=== PATIENT | male | born 1985 | race Two or more races ===

== ENCOUNTER 2024-06-08 11:11 | Emergency (ER) | payer OTHER ==
[~2024-06-08] VITALS: Ht 162.6 cm; Wt 61.2 kg
[2024-06-08 12:00] LABS: APPEARANCE,URINE Clear (CLEAR); BILIRUBIN,URINE Negative (NEGATIVE); BLOOD, URINE Negative Ery/uL (NEGATIVE); COLOR,URINE YELLOW (YELLOW); KETONES,URINE Negative (NEGATIVE); LEUKOCYTE ESTERASE ,URINE Negative (NEGATIVE); NITRITE, URINE Negative (NEGATIVE); PROTEIN,URINE Negative (NEGATIVE); UGLUCOSE Negative (NEGATIVE); UROBILINOGEN,URINE 0.2 EU/dL (0.2)
[2024-06-08] MEDS ORDERED: PHEN-704 PO (12:39)
[2024-06-08 12:46] VITALS: BP 125/80; TEMP 97.7; O2SAT 98
== END 2024-06-08 12:47 | disposition home or self-care (01) ==
LOC: ER 11:19
DX: R30.0 Dysuria (principal); R39.15 Urgency of urination; M35.3 Polymyalgia rheumatica; M45.9 Ankylosing spondylitis of unspecified sites in spine; Z88.6 Allergy status to analgesic agent
CPT/HCPCS: 87086-TC

== ENCOUNTER 2024-10-22 18:10 | Emergency (ER) | payer OTHER ==
[~2024-10-22] VITALS: Ht 167.6 cm; Wt 59.0 kg
[~2024-10-22 18:10] MED LIST: PHEN-704 PO
[2024-10-22 20:04] LABS: APPEARANCE,URINE CLEAR (CLEAR); BILIRUBIN,URINE NEGATIVE (NEGATIVE); BLOOD, URINE NEGATIVE Ery/uL (NEGATIVE); COLOR,URINE YELLOW (YELLOW); KETONES,URINE NEGATIVE (NEGATIVE); LEUKOCYTE ESTERASE ,URINE NEGATIVE (NEGATIVE); NITRITE, URINE NEGATIVE (NEGATIVE); PROTEIN,URINE NEGATIVE (NEGATIVE); UGLUCOSE NEGATIVE (NEGATIVE); UROBILINOGEN,URINE 0.2 EU/dL (0.2)
[2024-10-22] MEDS ORDERED: NITR100C6 PO (20:35)
[2024-10-22] MEDS ORDERED: PHEN-895 PO (20:35)
[2024-10-22 20:44] VITALS: BP 95/53; TEMP 98.3; O2SAT 100
== END 2024-10-22 20:45 | disposition home or self-care (01) ==
LOC: ER 18:15
DX: R30.0 Dysuria (principal); R35.0 Frequency of micturition; M45.9 Ankylosing spondylitis of unspecified sites in spine; Z87.440 Personal history of urinary (tract) infections; Z88.6 Allergy status to analgesic agent
CPT/HCPCS: 87086-TC

== ENCOUNTER 2025-04-29 12:40 | Emergency (ER) | payer OTHER ==
[~2025-04-29] VITALS: Ht 167.6 cm; Wt 61.2 kg
[~2025-04-29 12:40] MED LIST changes: +NITR100C6 PO; +PHEN-895 PO
[2025-04-29 12:53] VITALS: BP 106/57; TEMP 98.3; O2SAT 97
[2025-04-29] MEDS ORDERED: PSEU120T99 PO (13:15)
[2025-04-29] MEDS ORDERED: OXYM15MI4 NS (13:15)
== END 2025-04-29 13:43 | disposition home or self-care (01) ==
LOC: ER 12:54
DX: H69.92 Unspecified Eustachian tube disorder, left ear (principal); Z88.6 Allergy status to analgesic agent; Z60.2 Problems related to living alone